=== PATIENT | female | born 1950 | race Caucasian/White ===

== ENCOUNTER → 2016-12-05 | Outpatient (CLI) | payer OTHER | LOC: FIMAGING 11:21 | PROVIDERS: ATTEND Surgery | DX: E21.0 Primary hyperparathyroidism (principal) | CPT/HCPCS: 78070; A9500 ==

== ENCOUNTER 2017-11-01 03:28 | Observation (INO) | payer OTHER ==
--- NOTE | 2017-11-01 03:44 | CPEKG ---
Heart Rate: 96 RR Interval: 625 P-R Interval: 159 QRSD Interval: 90 QT Interval: 320 QTC Interval: 405 P [place]: 68 QRS [place]: -1 EKG Severity - ABNORMAL ECG - EKG Impression: SINUS RHYTHM EKG Impression: NONSPECIFIC REPOL ABNORMALITY, LATERAL LEADS Electronically Signed By: Yaw López 01-Nov-2017 07:12:57
[2017-11-01 04:02] LABS: PLATELET COUNT 164 10^3/uL (150-400)
--- NOTE | 2017-11-01 04:13 | EDPHY ---
H & P Stated Complaint: chills, epigastric pain, rapid HR Time Seen by Provider: 11/01/17 03:54 HPI/ROS: Chief Complaint: Epigastric pain, sweats HPI: 67-year-old woman with a history of atrial fibrillation, partial parathyroidectomy was seen by her primary care physician yesterday an annual physical. At that time she had a pneumonia and a shingles vaccine performed. At approximately 11 o'clock in the evening she developed significant chills which lasted for about an hour. She fell asleep. She then woke up about 230 in the morning with epigastric discomfort, about a 6/10. It did not radiate. It felt like which she thought that indigestion would feel like. No chest pain or shortness of breath. No cough. No nausea or vomiting. She did note that her blood pressure was quite high at that time. She does have a history of atrial fibrillation and has been on metoprolol in the past but has not had any issues ever since for parathyroidectomy earlier this year. ROS: 10 point Review of Systems is negative except as noted in the HPI. PMH: Atrial fibrillation, parathyroidectomy Social History: No smoking, occasional alcohol, no recreational drug use Family History: Brother has a history of coronary artery disease status post stenting Physical Exam: Gen: Awake, Alert, No Distress HEENT: Nose: no rhinorrhea Eyes: PERRLA, EOMI Mouth: Moist mucosa Neck: Supple, no JVD Chest: nontender, lungs clear to auscultation Heart: S1, S2 normal, no murmur Abd: Soft, non-tender, no guarding Back: no CVA tenderness, no midline tenderness Ext: no edema, non-tender Skin: no rash Neuro: CN II-XII intact, Sensation grossly intact, Strength 5/5 in bilateral upper and lower extremities - Personal History Current Tetanus/Diphtheria Vaccine: Yes - Medical/Surgical History Hx Asthma: No Hx Chronic Respiratory Disease: No Hx Diabetes: No Hx Cardiac Disease: Yes Hx Renal Disease: No Hx Cirrhosis: No Hx Alcoholism: No Hx HIV/AIDS: No Hx Splenectomy or Spleen Trauma: No Other PMH: afib, Constitutional: Initial Vital Signs Temperature (C) 36.8 C 11/01/17 03:30 Heart Rate 111 H 11/01/17 03:30 Respiratory Rate 20 11/01/17 03:30 Blood Pressure 180/108 H 11/01/17 03:30 O2 Sat (%) 94 11/01/17 03:30 O2 Delivery Mode Room Air Allergies/Adverse Reactions: metronidazole [From Flagyl] Allergy (Verified 11/01/17 10:16) irregular heart beat Penicillins Allergy (Verified 11/01/17 10:16) Rash Home Medications: Medication Instructions Recorded Ascorbic Acid [Vitamin C 500 mg 500 mg PO DAILY 11/01/17 (*)] Aspirin [Aspirin 81mg (*)] 81 mg PO DAILY #30 tab 11/01/17 Cholecalciferol Vit D3 [Vitamin D3 400 units PO DAILY 11/01/17 (*)] Cyanocobalamin [Vitamin B12 (*)] 1,000 mcg PO DAILY 11/01/17 Herbals/Supplements -Info Only 1 ea PO DAILY 11/01/17 Multivitamins [Multivitamin (*)] 0.5 each PO DAILY 11/01/17 [place]-3 Fatty Acids [Fish Oil 1000 1,000 mg PO DAILY 11/01/17 mg (*)] Medical Decision Making - Diagnostics EKG Interpretation: ECG time 3:41 a.m., sinus rhythm with a rate 96, normal axis, normal intervals, some nonspecific mild less than 1 mm T-wave depressions in V5 and V6 without any reciprocal changes. Imaging Results: Imaging Impressions Chest X-Ray 11/01/17 03:54 Impression: 1. Bronchitis/airways disease. 2. No definite focal pneumonia. 3. Pleuroparenchymal scarring in the lingula. 4. No pleural effusion or pneumothorax. Chest is negative per my interpretation. Imaging: I viewed and interpreted images myself ED Course/Re-evaluation: 67-year-old woman presenting with epigastric pain which woke with this morning. Initial troponin is noted to be elevated. ECG does not show any acute ST segment elevations. Awaiting chest x-ray results. Plan will be to admit for further cardiac workup. Case discussed with Dr. Butterfield, hospitalist. She will admit to her service for further evaluation. - Data Points Laboratory Results: Laboratory Results 11/01/17 03:50 11/01/17 03:50 11/01/17 03:50 Triglycerides 114 mg/dL mg/dL (35-135) Cholesterol 192 mg/dL mg/dL (140-220) Cholesterol Risk Factr 0.5 (0.2-1.0) LDL Cholesterol, Calc 100 mg/dL mg/dL (80-100) LDL Risk Factor 0.5 (0.2-1.0) VLDL Cholesterol 23 mg/dL mg/dL (8-25) Non-HDL Cholesterol 123 mg/dL mg/dL (90-129) HDL Cholesterol 69 mg/dL mg/dL (40-85) LDL/HDL Ratio 1.45 RATIO RATIO (1.00-3.22) Cholesterol/HDL Ratio 2.78 RATIO RATIO (1.00-4.44) Medications Given: Discontinued Medications Aspirin (Aspirin) 324 mg PO EDNOW ONE Stop: 11/01/17 04:15 Last Admin: 11/01/17 04:26 Dose: 324 mg Enoxaparin Sodium (Lovenox) 40 mg SC DAILY EUN Stop: 04/30/18 08:59 Last Admin: 11/01/17 10:15 Dose: Not Given Metoprolol Tartrate (Lopressor) 25 mg PO ONCE ONE Stop: 11/01/17 14:32 Last Admin: 11/01/17 15:08 Dose: 25 mg Point of Care Test Results: Chemistry 11/01/17 03:53 POC Troponin I 0.13 ng/mL H ng/mL (0.00-0.08) Departure - Departure Disposition: [facility] ([place], [place]) Inpatient Acute Clinical Impression: Chest pain, Elevated troponin Condition: Fair
[2017-11-01] MEDS ORDERED: ASPIRIN 81 MG CHEWABLE TAB PO ONE (04:14)
[2017-11-01] MEDS ORDERED: ACETAMINOPHEN 325 MG TAB PO PRN (05:29)
[2017-11-01] MEDS ORDERED: ONDANSETRON 4 MG/2 ML VIAL IVP PRN (05:29)
[2017-11-01] MEDS ORDERED: NITROGLYCERIN 0.4 MG BTL SL PRN (05:32)
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
[2017-11-01] MEDS ORDERED: ENOXAPARIN 40 MG/0.4 ML SYR SC SCH (09:00)
[2017-11-01] MEDS ORDERED: METOPROLOL TARTRATE 25 MG TAB PO ONE (14:31)
[2017-11-01] MEDS ORDERED: IOPAMIDOL (ISOVUE 370) 100 ML BTL IV ONE (15:35)
[2017-11-01 17:00] VITALS: BP 142/82
--- NOTE | 2017-11-01 18:04 | GDS ---
[f rep st] DISCHARGE SUMMARY DIAGNOSES: 1. Chest pain, likely noncardiac. 2. Coronary artery disease by CT coronary. 3. Anemia. 4. History of atrial fibrillation. HOSPITAL COURSE: A 67-year-old female presented with epigastric/chest pain. Her point of care tropo gretchen was slightly elevated. However, subsequent lab troponins were negative. Her EKG showed some mil d T-wave flattening/inversions. She underwent a treadmill stress test which showed worsening EKG william nges within the first minute. Because of this, she had a coronary CT scan which showed scattered colton cifications and less than 40% stenosis. She will be treated with an aspirin for secondary prevention of coronary artery disease. At the time of discharge, her lipid panel is pending. She was followin g up with Dr. Sanders next Monday, could address the need for statin at that time. She is quite co ncerned about side effects from statins. She is otherwise stable and anxious for discharge. /[id number]/MODL
[2017-11-02] MEDS ORDERED: CYANO/VITAMIN B12 1000 MCG TAB PO SCH (09:00)
[2017-11-02] MEDS ORDERED: ASCORBIC ACID 500 MG TAB PO SCH (09:00)
[2017-11-02] MEDS ORDERED: MULTIVITAMINS 1 EACH TAB PO SCH (09:00)
[2017-11-02] MEDS ORDERED: CHOLECALCIFEROL VIT D3 1,000 UNITS TAB PO SCH (09:00)
[2017-11-02] MEDS ORDERED: OMEGA-3 FATTY ACIDS 1,000 MG CAP PO SCH (09:00)
== END 2017-11-01 18:25 | disposition home or self-care (01) ==
LOC: F2W 06:21
PROVIDERS: ADMIT Family Medicine; ATTEND Family Medicine
DX: R07.9 Chest pain, unspecified (principal); I25.10 Atherosclerotic heart disease of native coronary artery without angina pectoris; D64.9 Anemia, unspecified
CPT/HCPCS: 71046; 75574; 93005; G0378; 84484-PO; J1650; Q9967